=== PATIENT | female | born 1980 ===

== ENCOUNTER 2017-12-02 16:58 | Emergency (ER) | payer SELFPAY ==
[2017-12-02 17:16] VITALS: BMI 24.7
[2017-12-02 17:23] VITALS: O2SAT 99
--- NOTE | 2017-12-02 17:57 | C.PDOC ---
History Of Present Illness 37 y/o female presents to ED with c/o chest pain radiating to back since 2pm today worsened with deep inspiration. Patient admits to nausea and sob, denies vomiting, leg swelling, fever, chills, recent travel or any other complaints at this time. Time Seen by Provider: 12/02/17 17:41 Chief Complaint (Nursing): Medical Clearance History Per: Patient History/Exam Limitations: no limitations Onset/Duration Of Symptoms: Days Current Symptoms Are (Timing): Still Present Past Medical History Reviewed: Historical Data, Nursing Documentation, Vital Signs Vital Signs: Last Vital Signs Temp 98.6 F 12/02/17 17:22 Pulse 84 12/02/17 17:22 Resp 17 12/02/17 17:22 BP 128/85 12/02/17 17:22 Pulse Ox 99 12/02/17 18:46 - Medical History PMH: No Chronic Diseases Surgical History: No Surg Hx Family History: States: No Known Family Hx Review Of Systems Except As Marked, All Systems Reviewed And Found Negative. Cardiovascular: Positive for: Chest Pain Respiratory: Positive for: Shortness of Breath Gastrointestinal: Positive for: Nausea Physical Exam - Physical Exam Appears: Non-toxic, No Acute Distress Skin: Warm, Dry, No Rash Head: Atraumatic, Normacephalic Eye(s): bilateral: Normal Inspection Oral Mucosa: Moist Neck: Supple Chest: Tenderness (reproducible chest wall) Cardiovascular: Rhythm Regular Respiratory: Normal Breath Sounds, No Rales, No Rhonchi, No Wheezing Gastrointestinal/Abdominal: Soft, No Tenderness, No Guarding, No Rebound Extremity: Normal ROM, No Pedal Edema, Capillary Refill (<2 seconds) Neurological/Psych: Oriented x3, Normal Speech (speaking in full sentences), Normal Cognition ED Course And Treatment - Laboratory Results Result Diagrams: 12/02/17 18:32 ECG: Interpreted By Me, Viewed By Me ECG Rhythm: Sinus Rhythm Interpretation Of ECG: Poor R wave progression. Normal intervals. Normal access Rate From EC (BPM) O2 Sat by Pulse Oximetry: 99 (RA) Pulse Ox Interpretation: Normal Medical Decision Making Medical Decision Making: Assessment: Atypical chest pain chest pain - patient heart score = 0 patient is on control case s/o to Dr. Pretty at 1900 Disposition - Disposition Disposition Time: 19:00 Condition: STABLE Forms: [facility] [employer] (Welsh) - Clinical Impression Clinical Impression: Chest pain - Scribe Statement The provider has reviewed the documentation as recorded by the Zahraibe Aidan Monique All medical record entries made by the Zahraibe were at my direction and personally dictated by me. I have reviewed the chart and agree that the record accurately reflects my personal performance of the history, physical exam, medical decision making, and the department course for this patient. I have also personally directed, reviewed, and agree with the discharge instructions and disposition. Physician Patient Turnover Patient Signed Over To: Leonid Pretty Handoff Comments: pending labs, reevaluation and disposition
[2017-12-02 18:35] LABS: BASO # 0.1 K/uL (0.0-0.2); BASO % 0.8 % (0.0-2.0); EOS % 0.3 % (0.0-4.0); HEMOGLOBIN 13.6 g/dL (11.0-16.0); MEAN CELL VOLUME 90.1 fL (81.0-99.0); MEAN CORPUSCULAR HEMOGLOBIN 30.7 pg (27.0-31.0); MEAN CORPUSCULAR HGB CONC 34.1 g/dL (33.0-37.0); MEAN PLATELET VOLUME 8.3 fL (7.2-11.7); MONO # 0.5 K/uL (0.0-0.8); MONO % 4.7 % (0.0-10.0); NEUT # 7.1 K/uL (1.8-7.0); NEUT % 73.2 % (50.0-75.0); RBC 4.42 Mil/uL (3.80-5.20); WHITE BLOOD COUNT 9.7 K/uL (4.8-10.8)
--- NOTE | 2017-12-02 18:39 | RAD ---
HISTORY: chest pain COMPARISON: None available. TECHNIQUE: Chest PA and lateral FINDINGS: LUNGS: No focal consolidation. Please note that chest x-ray has limited sensitivity for the detection of pulmonary masses. PLEURA: No significant pleural effusion identified. No definite pneumothorax . CARDIOVASCULAR: Heart size appears within normal limits. OSSEOUS STRUCTURES: No acute osseous abnormality is detected. VISUALIZED UPPER ABDOMEN: Unremarkable. OTHER FINDINGS: None. IMPRESSION: No focal consolidation, significant pleural effusion, or definite pneumothorax identified.
[2017-12-02 18:50] LABS: ALB/GLOB RATIO 1.2 (1.0-2.1); ALBUMIN 4.4 g/dL (3.5-5.0); ALT/SGPT 31 U/L (9-52); AST/SGOT 21 U/L (14-36); BLOOD UREA NITROGEN 9 mg/dL (7-17); CALCIUM 9.4 mg/dl (8.6-10.4); GFR NON-AFRICAN AMERICAN > 60
[2017-12-02 19:03] LABS: URINE BILIRUBIN NEGATIVE (NEGATIVE); URINE BLOOD 2+ (NEGATIVE); URINE CLARITY Clear (Clear); URINE COLOR Colorless (YELLOW); URINE GLUCOSE (UA) NORMAL (Normal); URINE LEUKOCYTE ESTERASE NEG Leu/uL (Negative); URINE PROTEIN NEGATIVE (NEGATIVE); URINE UROBILINOGEN NORMAL mg/dL (0.2-1.0)
[2017-12-02 19:25] VITALS: BP 107/71; PULSE 68; RESP 14
[2017-12-02 20:24] VITALS: TEMP 97.8
--- NOTE | 2017-12-04 06:58 | CARD ---
APPROVED REPORT Date of service: 12/02/2017 EKG Measurement Heart [id number] <Conclusion> Normal sinus rhythm with sinus arrhythmia Normal ECG
== END 2017-12-02 20:25 | disposition home or self-care (01) ==
LOC: C.ER 16:58
DX: R52 Pain, unspecified (principal)
CPT/HCPCS: 71046; 80053; 81001; 84484; 85025; 85378; 96374; 96375; 99284; J1885; J2405